=== PATIENT | female | born 1965 | race Caucasian/White ===

== ENCOUNTER → 2016-08-22 | Outpatient (CLI) | payer OTHER ==
[2016-08-22 08:47] LABS: MEAN CORPUSCULAR HEMOGLOBIN 30.8 pg (27.0-33.0); MEAN CORPUSCULAR HGB CONC 33.4 g/dl (32.0-36.5); MEAN CORPUSCULAR VOLUME 92.4 fl (80.0-96.0); RED CELL DISTRIBUTION WIDTH 12.3 % (11.5-14.5); WHITE BLOOD COUNT 3.6 K/mm3 (4.0-10.0)
[2016-08-22 09:03] LABS: ALBUMIN/GLOBULIN RATIO 1.21 (1.00-1.93); ALKALINE PHOSPHATASE 82 U/L (45-117); ALT/SGPT 26 U/L (12-78); ANION GAP 7 MEQ/L (8-16); AST/SGOT 19 U/L (15-37); BILIRUBIN,TOTAL 0.7 MG/DL (0.2-1.0); BLOOD UREA NITROGEN 17 MG/DL (7-18); CALCIUM LEVEL 8.8 MG/DL (8.5-10.1); CARBON DIOXIDE LEVEL 30 MEQ/L (21-32); CHLORIDE LEVEL 102 MEQ/L (98-107); CREATININE FOR GFR 0.58 MG/DL (0.55-1.02); GLOMERULAR FILTRATION RATE > 60.0 (>51); GLUCOSE, FASTING 76 MG/DL (70-105); POTASSIUM SERUM 4.1 MEQ/L (3.5-5.1); SODIUM LEVEL 139 MEQ/L (136-145); TOTAL PROTEIN 7.3 GM/DL (6.4-8.2); URIC ACID 3.3 MG/DL (2.6-6.0)
--- NOTE | 2016-08-22 11:19 | REP ---
Bilateral shoulders: Right shoulder three views: There is acromioclavicular osteoarthritis. There is advanced right glenohumeral osteoarthritis with deformity of the humeral head, joint space narrowing, osteophytic formation. The subacromial space is narrowed compatible with chronic impingement. Mineralization is normal. There is no fracture or dislocation. Left shoulder three views: There is acromioclavicular osteoarthritis. There is advanced glenohumeral osteoarthritis with humeral head deformity, joint space narrowing and osteophytic formation. There is narrowing of the subacromial space compatible with chronic impingement. There is a degenerative calcification extending inferiorly from the acromion into the subacromial space. There is no fracture or dislocation. Mineralization is normal. Signed by Mayco Bernardo MD 08/22/2016 11:10 A
[2016-08-24 15:10] LABS: Lyme Disease IgG/IgM Antibodie <0.91 ISR (0.00-0.90); Lyme Disease IgM Ab Quantitati <0.80 index (0.00-0.79)
== END ==
LOC: M LAB 07:54
PROVIDERS: ATTEND Family Medicine
DX: R53.83 Other fatigue (principal); M25.511 Pain in right shoulder; M25.512 Pain in left shoulder; M19.011 Primary osteoarthritis, right shoulder; M19.012 Primary osteoarthritis, left shoulder

== ENCOUNTER → 2018-01-15 | Outpatient (CLI) | payer OTHER ==
[2018-01-15 10:17] LABS: HEMATOCRIT 38.8 % (36.0-47.0); HEMOGLOBIN 12.6 g/dl (12.0-15.5); MEAN CORPUSCULAR HEMOGLOBIN 30.1 pg (27.0-33.0); MEAN CORPUSCULAR HGB CONC 32.5 g/dl (32.0-36.5); MEAN CORPUSCULAR VOLUME 92.6 fl (80.0-96.0); PLATELET COUNT, AUTOMATED 274 10^3/uL (150-450); RED BLOOD COUNT 4.19 10^6/uL (4.00-5.40); RED CELL DISTRIBUTION WIDTH 12.3 % (11.5-14.5); WHITE BLOOD COUNT 4.9 10^3/uL (4.0-10.0)
[2018-01-15 10:28] LABS: PROTHROMBIN TIME 13.3 SECONDS (12.1-14.4)
[2018-01-15 10:30] LABS: ESTIMATED AVERAGE GLUCOSE 91 MG/DL (60-110); HEMOGLOBIN A1c 4.8 %
[2018-01-15 10:57] LABS: ALBUMIN/GLOBULIN RATIO 1.11 (1.00-1.93); ALKALINE PHOSPHATASE 81 U/L (45-117); ALT/SGPT 21 U/L (12-78); ANION GAP 7 MEQ/L (8-16); AST/SGOT 18 U/L (7-37); BILIRUBIN,TOTAL 1.1 MG/DL (0.2-1.0); BLOOD UREA NITROGEN 13 MG/DL (7-18); CALCIUM LEVEL 9.1 MG/DL (8.5-10.1); CARBON DIOXIDE LEVEL 30 MEQ/L (21-32); CHLORIDE LEVEL 104 MEQ/L (98-107); CHOLESTEROL LEVEL 195 MG/DL (<200); CHOLESTEROL RISK RATIO 2.708 (<5); CREATININE FOR GFR 0.52 MG/DL (0.55-1.30); GLOMERULAR FILTRATION RATE > 60.0 (>51); GLUCOSE, FASTING 77 MG/DL (70-100); HDL CHOLESTEROL 72 MG/DL (>40); LDL CHOLESTEROL 109.4 MG/DL (<100); NON-HDL-C 123 MG/DL; SODIUM LEVEL 141 MEQ/L (136-145); TOTAL PROTEIN 7.6 GM/DL (6.4-8.2); TRIGLYCERIDES LEVEL 68 MG/DL (<150)
== END ==
LOC: M LAB 09:07
DX: Z01.818 Encounter for other preprocedural examination (principal); I10 Essential (primary) hypertension
CPT/HCPCS: 71046

== ENCOUNTER 2018-01-26 11:41 | Inpatient (IN) | payer OTHER ==
[2018-01-26 12:15] LABS: HEMATOCRIT 39.1 % (36.0-47.0); HEMOGLOBIN 12.9 g/dl (12.0-15.5); MEAN CORPUSCULAR HEMOGLOBIN 30.7 pg (27.0-33.0); MEAN CORPUSCULAR VOLUME 93.1 fl (80.0-96.0); PLATELET COUNT, AUTOMATED 265 10^3/uL (150-450); RED CELL DISTRIBUTION WIDTH 12.2 % (11.5-14.5); WHITE BLOOD COUNT 5.6 10^3/uL (4.0-10.0)
[2018-01-26] MEDS: LR 1,000 ML IV ×3 (12:15→17:15)
[2018-01-26 12:36] LABS: ERYTHROCYTE SEDIMENTATION RATE 22 mm/hr (0-30)
[2018-01-26] MEDS ORDERED: LIDOCAINE 2% INJ 100 MG/5 ML SDV (FOR ANES.) As Ordered (13:18)
[2018-01-26] MEDS ORDERED: PROPOFOL 200 MG/20 ML VIAL As Ordered ×3 (13:18→16:02)
[2018-01-26] MEDS ORDERED: MIDAZOLAM INJ 2 MG/2 ML VIAL (J2250) As Ordered ×2 (13:18→13:33)
[2018-01-26] MEDS ORDERED: fentaNYL 100 MCG/2 ML INJECTION (J3010) As Ordered ×2 (13:19→13:33)
[2018-01-26] MEDS: MIDAZOLAM INJ 2 MG/2 ML VIAL (J2250) IV ×2 (13:51→13:55)
[2018-01-26] MEDS: fentaNYL 100 MCG/2 ML INJECTION (J3010) IV ×2 (13:51→13:57)
[2018-01-26] MEDS ORDERED: ONDANSETRON 4MG/2ML VIAL (J2405) As Ordered ×2 (14:01→15:54)
[2018-01-26] MEDS: EPINEPHrine INJ 1 MG/ML 1ML AMP As Ordered (14:25)
[2018-01-26] MEDS ORDERED: dexameTHASONE 10 MG/1 ML VIAL PRES.FREE (J1100) (15:03)
[2018-01-26] MEDS ORDERED: ROPIvacaine 0.5% 30 ML INJECTION (J2795 PER 1MG) (15:03)
[2018-01-26] MEDS: ceFAZolin 1GM INJ (J0690 PER 500MG) As Ordered (15:24)
[2018-01-26] MEDS: TRANEXAMIC ACID 100 MG/ML 10ML VIAL As Ordered (15:25)
[2018-01-26] MEDS ORDERED: KETOROLAC 60 MG/2 ML VIAL (J1885) As Ordered (15:54)
[2018-01-26] MEDS: BUPIVACAINE LIPOSOME/PF 1.3% 20 ML VIAL (13.3MG/ML)(EXPAREL) As Ordered (15:55)
[2018-01-26] MEDS ORDERED: BUPIVACAINE/DEXTROSE 0.75% 2 ML AMP As Ordered (15:55)
[2018-01-26] MEDS ORDERED: ONDANSETRON 4MG/2ML VIAL (J2405) IV ×3 (17:00→17:15)
[2018-01-26] MEDS ORDERED: fentaNYL 100 MCG/2 ML INJECTION (J3010) IV (17:00)
[2018-01-26] MEDS ORDERED: MEPERIDINE INJ 25 MG/ML VIAL (J2175) IV (17:00)
[2018-01-26] MEDS ORDERED: PERCOCET 5MG/325MG TAB PO (17:00)
[2018-01-26] MEDS ORDERED: METOCLOPRAMIDE INJ 10MG/2ML VIAL (J2765) IV (17:00)
[2018-01-26] MEDS ORDERED: NALBUPHINE HCL 10 MG/ML AMP (J2300) IV (17:15)
[2018-01-26] MEDS ORDERED: FLEET ENEMA PR (17:15)
[2018-01-26] MEDS ORDERED: diphenhydrAMINE INJ 50MG/ML VIAL (J1200) IV (17:15)
[2018-01-26] MEDS ORDERED: NALOXONE INJ 0.4 MG/1 ML VIAL (J2310) IV (17:15)
[2018-01-26] MEDS ORDERED: ACETAMINOPHEN TAB 650MG DOSE (2X325MG) PO (17:15)
[2018-01-26] MEDS ORDERED: EPIDURAL/PCA KEYS XX (17:15)
[2018-01-26] MEDS ORDERED: MORPHINE 1MG/ML IN 0.9% NACL 100ML IV BAG IV (17:15)
[2018-01-26] MEDS ORDERED: LABETALOL HCL 100 MG/20 ML VIAL As Ordered (17:44)
[2018-01-26] MEDS: LABETALOL HCL 100 MG/20 ML VIAL IV ×5 (18:30→18:50)
[2018-01-26] MEDS: LOSARTAN 50 MG TAB PO (19:03)
[2018-01-26] MEDS: SENOKOT S TAB PO (20:06)
[2018-01-27] MEDS: LR 1,000 ML IV (05:40)
[2018-01-27 06:44] LABS: HEMATOCRIT 30.5 % (36.0-47.0); MEAN CORPUSCULAR HEMOGLOBIN 30.8 pg (27.0-33.0); MEAN CORPUSCULAR HGB CONC 33.1 g/dl (32.0-36.5); PLATELET COUNT, AUTOMATED 240 10^3/uL (150-450); RED BLOOD COUNT 3.28 10^6/uL (4.00-5.40); RED CELL DISTRIBUTION WIDTH 12.1 % (11.5-14.5); WHITE BLOOD COUNT 9.6 10^3/uL (4.0-10.0)
[2018-01-27] MEDS ORDERED: ONDANSETRON 4 MG TAB (S0181) PO (06:45)
[2018-01-27] MEDS ORDERED: PERCOCET 5MG/325MG TAB PO (06:45)
[2018-01-27 06:56] LABS: HEMOGLOBIN 10.1 g/dl (12.0-15.5)
[2018-01-27 07:11] LABS: ALBUMIN 3.2 GM/DL (3.2-5.2); ALKALINE PHOSPHATASE 67 U/L (45-117); ALT/SGPT 18 U/L (12-78); ANION GAP 7 MEQ/L (8-16); AST/SGOT 13 U/L (7-37); BILIRUBIN,TOTAL 0.8 MG/DL (0.2-1.0); BLOOD UREA NITROGEN 14 MG/DL (7-18); CALCIUM LEVEL 8.1 MG/DL (8.5-10.1); CARBON DIOXIDE LEVEL 28 MEQ/L (21-32); CHLORIDE LEVEL 102 MEQ/L (98-107); CREATININE FOR GFR 0.56 MG/DL (0.55-1.30); GLOMERULAR FILTRATION RATE > 60.0 (>51); GLUCOSE, FASTING 104 MG/DL (70-100); SODIUM LEVEL 137 MEQ/L (136-145); TOTAL PROTEIN 6.1 GM/DL (6.4-8.2)
[2018-01-27] MEDS: MOM 30ML SUSPENSION UDC PO (09:00)
[2018-01-27] MEDS: SENOKOT S TAB PO (09:28)
[2018-01-27] MEDS: PERCOCET 5MG/325MG TAB PO (09:29)
[2018-01-27] MEDS: LOSARTAN 50 MG TAB PO (09:31)
[2018-01-27] MEDS: MIRALAX *UNIT DOSE* 17GM PACKET PO (09:32)
[2018-01-27] MEDS ORDERED: RIVAROXABAN 10 MG TAB (XARELTO) PO (18:00)
== END 2018-01-27 14:40 | disposition home or self-care (01) | DRG 302 ==
LOC: M OR 11:41 → M MS5PR 18:22
PROC: 0SRC0J9 Replacement of Right Knee Joint with Synthetic Substitute, Cemented, Open Approach (ICD-10-PCS; principal; 2018-01-26 14:41)
DX: M17.11 Unilateral primary osteoarthritis, right knee (principal); I10 Essential (primary) hypertension; Z79.899 Other long term (current) drug therapy

== ENCOUNTER → 2018-05-29 | Outpatient (CLI) | payer OTHER ==
[~2018-05-29] MED LIST: LOSA100T50 PO; LOSA50TA88 PO; MOBI4TAB PO; PERC5TAB12 PO; TYLE650T35 PO; XARE10TA PO
[2018-05-29 08:22] LABS: HEMATOCRIT 38.6 % (36.0-47.0); HEMOGLOBIN 12.3 g/dl (12.0-15.5); MEAN CORPUSCULAR HEMOGLOBIN 28.9 pg (27.0-33.0); MEAN CORPUSCULAR HGB CONC 31.9 g/dl (32.0-36.5); MEAN CORPUSCULAR VOLUME 90.8 fl (80.0-96.0); PLATELET COUNT, AUTOMATED 273 10^3/uL (150-450); RED BLOOD COUNT 4.25 10^6/uL (4.00-5.40); WHITE BLOOD COUNT 5.3 10^3/uL (4.0-10.0)
[2018-05-29 08:34] LABS: INR 0.99; PROTHROMBIN TIME 13.2 SECONDS (12.1-14.4)
--- NOTE | 2018-05-29 08:34 | REP ---
Chest two views HISTORY: Hypertension Comparison: 01/15/2018 The lungs are clear. The heart is normal in size. The pulmonary vasculature is normal in appearance. Degenerative change is present in the shoulders. IMPRESSION: No acute disease. Electronically Signed by Eliezer Pagan MD 05/29/2018 08:25 A
[2018-05-29 08:56] LABS: ALBUMIN 4.1 GM/DL (3.2-5.2); ALT/SGPT 30 U/L (12-78); BILIRUBIN,TOTAL 0.9 MG/DL (0.2-1.0); BLOOD UREA NITROGEN 15 MG/DL (7-18); CARBON DIOXIDE LEVEL 27 MEQ/L (21-32); CHLORIDE LEVEL 104 MEQ/L (98-107); CHOLESTEROL LEVEL 199 MG/DL (<200); CHOLESTEROL RISK RATIO 2.653 (<5); CREATININE FOR GFR 0.53 MG/DL (0.55-1.30); GLOMERULAR FILTRATION RATE > 60.0 (>51); GLUCOSE, FASTING 75 MG/DL (70-100); HDL CHOLESTEROL 75 MG/DL (>40); LDL CHOLESTEROL 113 MG/DL (<100); NON-HDL-C 124 MG/DL; POTASSIUM SERUM 4.2 MEQ/L (3.5-5.1); SODIUM LEVEL 139 MEQ/L (136-145); TOTAL PROTEIN 7.6 GM/DL (6.4-8.2); TRIGLYCERIDES LEVEL 57 MG/DL (<150)
[2018-05-29 09:41] LABS: HEMOGLOBIN A1c 5.1 %
--- NOTE | 2018-05-29 23:55 | ECGEPIP ---
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
== END ==
LOC: M LAB 07:25
PROVIDERS: ATTEND Family Medicine
DX: Z01.818 Encounter for other preprocedural examination (principal); I10 Essential (primary) hypertension; I45.10 Unspecified right bundle-branch block

== ENCOUNTER 2018-06-18 09:32 | Inpatient (IN) | payer OTHER ==
--- NOTE | 2018-06-09 09:46 | HPE ---
DATE OF ANTICIPATED ADMISSION: 06/18/2018 ATTENDING PHYSICIAN: Dr. Darrell Lindo CHIEF COMPLAINT: Left knee pain and stiffness. HISTORY: The patient is a pleasant 52-year-old female with progressively worsening left knee pain and stiffness. She failed to improve with conservative measures. She continues to have symptoms with weightbearing activities and activities of daily living. The patient consented for an elective left total knee arthroplasty with Dr. Lindo for her continued symptoms. Medical optimization pending with Dr. Abad. Chronic medical conditions essential hypertension. CURRENT MEDICATIONS: - Mobic 7.5 mg twice daily - losartan 50 mg daily ALLERGIES: No known drug allergies. PAST SURGICAL HISTORY: Right total knee arthroplasty and a breast reduction. FAMILY HISTORY: Positive for hypertension and cancer. SOCIAL HISTORY: Denies tobacco use and illicit drug use. Rare alcohol use. REVIEW OF SYSTEMS: The patient denies fevers, chills, nausea, vomiting or diarrhea. She denies chest pain, shortness of breath, lightheadedness, headaches or abdominal pain. She denies any recent upper respiratory or urinary tract infection symptoms. The patient continues to have left knee pain with weightbearing activities and activities of daily living. PHYSICAL EXAMINATION: General: Well-nourished, well-developed female in no apparent distress. She is alert, oriented and cooperative. Mood and affect are appropriate. Vital signs: Height 5 feet and 6-1/2 inches, weight 185.4 pounds, blood pressure 160/80, respirations 16, heart rate 60. Neck: Supple without lymphadenopathy. Heart: Regular rate and rhythm. Lungs: Clear to auscultation bilaterally. Abdomen: Bowel sounds present. Abdomen is soft, nontender to palpation. Musculoskeletal: Inspection of the left knee does show some hypertrophic bone growth. Otherwise no erythema, edema or ecchymosis. Her skin is intact. There is tenderness along the medial joint line. She has full extension of the knee, can only flex to 90 degrees. Left lower extremity strength is 5/5. Calf is soft, nontender to palpation with no palpable cords noted. She is neurovascularly intact distally. There was no hip irritability elicited with range of motion testing. LABORATORY DATA: Chest x-ray - No acute disease. EKG sinus rhythm with a right bundle-branch block. Prolonged QTC. Comprehensive metabolic profile - fasting glucose 75, BUN 15, creatinine decreased at 0.53, GFR greater than 60, sodium 139, potassium 4.2, chloride 104, carbon dioxide 24, anion gap 8, calcium 9, AST 23, ALT 30, alkaline phosphatase 89, total bilirubin 0.9, triglycerides 57, total cholesterol 199, HDL 75, LDL elevated at 113, prothrombin time 13.2, INR 0.99. Complete blood count WBC is 5.3, RBCs 4.25, hemoglobin 12.3, hematocrit 38.6. IMPRESSION: Left knee osteoarthritis with x-rays notable for end-stage degenerative changes. PLAN: The patient has consented for an elective left total knee arthroplasty with Dr. Lindo for her continued symptoms. Medical optimization pending with Dr. Abad. HUMBERTO
[~2018-06-18] VITALS: Ht 172.7 cm; Wt 77.1 kg
[2018-06-18] MEDS ORDERED: MIDAZOLAM INJ 2 MG/2 ML VIAL (J2250) As Ordered ONE ×2 (10:41→11:22)
[2018-06-18] MEDS ORDERED: fentaNYL 100 MCG/2 ML INJECTION (J3010) As Ordered ONE ×2 (10:41→11:22)
[2018-06-18] MEDS ORDERED: ceFAZolin 1GM INJ (J0690 PER 500MG) As Ordered ONE (10:52)
[2018-06-18] MEDS ORDERED: BUPIVACAINE LIPOSOME/PF 1.3% 20ML VIAL (13.3MG/ML)(EXPAREL)(C9290 PER1MG) As Ordered ONE (10:52)
[2018-06-18] MEDS ORDERED: EPINEPHrine INJ 1 MG/ML 1ML AMP As Ordered ONE (10:52)
[2018-06-18] MEDS ORDERED: TRANEXAMIC ACID 100 MG/ML 10ML VIAL As Ordered ONE (10:52)
--- NOTE | 2018-06-18 12:06 | IPN ---
DATE: 06/18/2018 Patient seen and examined. She wished to go ahead with a left total knee arthroplasty, had gone through one recently on the right side and did very well. She is aware of the nature of the procedure, the risks of bleeding, infection, damage to nerves, vessels, persistent pain, wear, loosening, blood clots, medical problems, among others. There was a preop clearance obtained.
[2018-06-18] MEDS ORDERED: MIDAZOLAM INJ 2 MG/2 ML VIAL (J2250) IV ONE (12:30)
[2018-06-18] MEDS ORDERED: fentaNYL 100 MCG/2 ML INJECTION (J3010) IV ONE (12:30)
[2018-06-18] MEDS ORDERED: HYDROmorphone HCL 2 MG/ML 1ML VIAL (J1170) As Ordered ONE (12:53)
[2018-06-18] MEDS ORDERED: PROPOFOL 200 MG/20 ML VIAL As Ordered ONE (12:56)
[2018-06-18] MEDS ORDERED: ROCURONIUM BROMIDE 50 MG/5 ML VIAL As Ordered ONE (12:56)
[2018-06-18] MEDS ORDERED: ONDANSETRON 4MG/2ML VIAL (J2405) As Ordered ONE (13:16)
[2018-06-18] MEDS ORDERED: dexameTHASONE 4 MG/ML 1ML VIAL (J1100) As Ordered ONE (13:16)
[2018-06-18] MEDS ORDERED: NEOSTIGMINE 10 MG/10 ML VIAL (J2710) As Ordered ONE (13:51)
[2018-06-18] MEDS ORDERED: GLYCOPYRROLATE INJ 0.2 MG/ML 2 ML VIAL As Ordered ONE (13:51)
[2018-06-18] MEDS ORDERED: fentaNYL 100 MCG/2 ML INJECTION (J3010) IV PRN (14:45)
[2018-06-18] MEDS ORDERED: HYDROMORPHONE HCL 0.5 MG/ 0.5 ML SYRINGE (J1170 PER 1) IV PRN (14:45)
[2018-06-18] MEDS ORDERED: LR 1,000 ML IV SCH (14:45)
[2018-06-18] MEDS ORDERED: PERCOCET 5MG/325MG TAB PO PRN (14:45)
[2018-06-18] MEDS ORDERED: ONDANSETRON 4MG/2ML VIAL (J2405) IV PRN (14:45)
[2018-06-18] MEDS ORDERED: MORPHINE 4 MG/ML 1ML VIAL/SYRINGE (J2270) IV PRN ×2 (15:00)
[2018-06-18] MEDS ORDERED: FLEET ENEMA PR PRN (15:15)
[2018-06-18] MEDS ORDERED: ACETAMINOPHEN TAB 650MG DOSE (2X325MG) PO PRN (15:15)
--- NOTE | 2018-06-18 15:22 | REP ---
Left knee: Two views. History: Postop. Comparison left knee radiographs August 04, 2014. Findings: Patient is status post left knee arthroplasty. Anterior skin ghazala are noted. Arthroplasty components are well aligned with respect to each other and their grindstone bones. There is fluid and air in the suprapatellar bursa and extra-articular soft tissue emphysema is seen. Electronically Signed by [place] Carmona MD 06/18/2018 10:28 P
[2018-06-18 15:30] VITALS: BP 186/100
[2018-06-18] MEDS: LR 1,000 ML IV SCH (15:52)
[2018-06-18 16:00] VITALS: BP 180/96
[2018-06-18 17:00] VITALS: BP 173/99
[2018-06-18 18:00] VITALS: BP 173/100
--- NOTE | 2018-06-18 18:07 | RO ---
DATE OF PROCEDURE: 06/18/2018 PREOPERATIVE DIAGNOSIS: Left knee osteoarthritis. POSTOPERATIVE DIAGNOSIS: Left knee osteoarthritis. PROCEDURE: Left total knee arthroplasty using a PFC Sigma rotating platform, posterior stabilized, size 3 femur, size 3 tibia, and 17.5 polyethylene with 35 patellar button. SURGEON: Dr. Darrell Lindo DATA COLLECTOR: CAROLINA Flowers ANESTHESIA: Spinal followed by general. ESTIMATED BLOOD LOSS: Less than 50 mL. COMPLICATIONS: None. INDICATIONS: This is a 52-year-old woman who has advanced arthritis of her knee. She did very well with a knee replacement on the right side and wished to go ahead with a left knee replacement. She understood the nature of this, the risks of bleeding, infection, damage to nerves, vessels, persistent pain, wear, loosening, blood clots, medical problems, among others. She had such significant arthritis that I had ordered in a TC3 system in case I needed added stability. This is why I elected to go ahead with the PFC Sigma system because the TC3 would be a back up for that. DESCRIPTION OF PROCEDURE: The patient was taken to the operating room, placed in supine position after spinal anesthesia was induced, followed by that general anesthesia was induced, and the left lower extremity was prepped and draped in the usual sterile fashion. I then created longitudinal incision over the anterior aspect of the knee, sharply dissected down through subcutaneous tissue, then performed a medial parapatellar arthrotomy per routine, everted the patella. There were multiple loose bodies and significant large osteophytes around the femur and tibia that were removed. I then used the canal initiating reamer on the femoral side followed by the intramedullary guide set at 5 degrees of valgus and a 10 mm cut. This was pinned in place by the speech language pathologist assistant, and the distal femoral cut was made under my direct supervision. The femur was sized to be a 3, which was the same as the other side. I then placed the cutting block on the end of the femur in the usual fashion, and made the remaining four cuts. We then prepared the tibia. The tibial alignment guide was placed in the appropriate amount of valgus and posterior slope. I ended up taking 2 mm off the low side, which was about 12 off of the high side and the low side, medial side was extremely sclerotic and was quite difficult to pass the saw blade through. I removed this bone, then removed the soft tissue and osteophytes from either side of the knee. I prepared the tibia. The size 3 tray fit nicely, and I drilled and broached. I removed the trial component and actually then checked the spacer block and a 17.5 seemed to have the most appropriate fit and had excellent soft tissue balance. I did have to release a little bit more on the medial side tibia, but overall I was very pleased with the balance and range of motion. The box cutting guide was then placed on the femur, and the remaining three cuts were made. Trial components were placed, which fit very nicely and ended up using a 17.5 polyethylene, size 3 femur and size 3 tibia, freehand cut the patella removing about 7 mm of bone and sized to be a 35. Drill holes were placed and the patella tracked very nicely. Overall, I was very pleased with the alignment, position and stability of the knee. Trial components were removed. The speech language pathologist assistant prepared the bone cement in the modern technique on the back table, and I irrigated the bony surfaces, I injected the Exparel in the deep tissues. I dried the tibia and femur and cemented on those components, removing excess bone cement, then placed the polyethylene insert, brought the knee out in extension, cemented on the patella, held this in place with a clamp until the cement had hardened. I had removed all excess bone cement. TXA solution was placed in the knee and final irrigation was performed of the deep layers. I then repaired the deep layer with #1 Vicryl suture followed by a running Stratafix suture in both directions, performing a watertight closure. Irrigated, closed the subcu with #2-0 Vicryl and the skin with ghazala. A sterile dressing was applied, and she was taken to the recovery room in stable condition. There were no known complications. The plan will be routine postop. The speech language pathologist assistant was instrumental in holding retractors and making one of the bone cuts, mixing the cement and wound closure.
--- NOTE | 2018-06-18 18:13 | CR.PDOC ---
General Date of Consultation: Jun 18, 2018 Consultation REASON FOR CONSULTATION/CHIEF COMPLAINT: [HTN mgt ]. eft knee pain and stiffness. HISTORY: This is a 52 yo female with hx of htn who is s/p left knee total replacement today. IM team was consulted for htn mgt. Patient said her bp is well controlled with losartan 100mg . She denied fever, chills, chest pain, sob, headache , weakness or moderate/severe pain REVIEW OF SYSTEMS: All 14 points ROS is negative except what's stated in HPI PHYSICAL EXAMINATION: GEN: no acute distress HEENT : no lymphadenopathy, PERRLA , no oropharyngeal erythema or exudates CVS: Normal S1/s2, no murmurs, rubs or gallops, RESP: Lungs are clear to auscultation bilaterally, no crackles, wheezes or rhonchi Abd: soft, nontender, nondistended, + BS MSK: full ROM, 5/5 strength in all extremities - except left knee due to surgery. left knee in clean dressing , mildly swollen and tender Integumentary: no rash or bruises Neuro: AOAx3, no focal deficit psych: normal mood, good judgement and cooperative ALLERGIES: No known drug allergies. PAST SURGICAL HISTORY: Right total knee arthroplasty and a breast reduction. FAMILY HISTORY: Positive for hypertension and cancer, cva (father ) SOCIAL HISTORY: Denies tobacco use and illicit drug use. Rare alcohol use. Assessment HTN- uncontrolled at this time Recommendation restart home BP meds and adequate pain control ( pain can cause bp to bg sudeep vated) would also check chemistry and cbc if pt will be remaining the hospital AC and pain mgt per surgery team dvt ppx full code, from home, no svc Vital Signs/I&O Vital Signs Date Time Temp Pulse Resp B/P (MAP) Pulse Ox O2 Delivery O2 Flow Rate FiO2 06/18/18 17:00 98.4 78 21 173/99 (123) 98 06/18/18 14:53 Room Air 06/18/18 12:15 2 Laboratory Data Labs 24H Laboratory Tests 2 06/18/18 09:48: Erythrocyte Sedimentation Rate 17 Allergies Coded Allergies: No Known Drug Allergy (Unverified Allergy, Unknown, 05/19/18) Home Medications Scheduled Losartan Potassium (Losartan Potassium) 100 Mg Tab, 100 MG PO DAILY, (Reported) Meloxicam (Mobic) 7.5 Mg Tab, 7.5 MG PO BID, #30 (Reported) WITH FOOD Scheduled PRN Acetaminophen (Tylenol 8 Hour Arthritis) 650 Mg Tab, 1,300 MG PO Q8HP PRN for PAIN, (Reported) ETHAN EDWARDS MD Jun 18, 2018 18:13
[2018-06-18 18:55] VITALS: BP 169/104
[2018-06-18] MEDS: LOSARTAN 50 MG TAB PO SCH (19:20)
[2018-06-18 19:51] LABS: ALBUMIN 3.8 GM/DL (3.2-5.2); ALT/SGPT 22 U/L (12-78); BILIRUBIN,TOTAL 0.7 MG/DL (0.2-1.0); BLOOD UREA NITROGEN 13 MG/DL (7-18); CALCIUM LEVEL 8.6 MG/DL (8.5-10.1); CARBON DIOXIDE LEVEL 25 MEQ/L (21-32); CHLORIDE LEVEL 101 MEQ/L (98-107); CREATININE FOR GFR 0.66 MG/DL (0.55-1.30); GLOMERULAR FILTRATION RATE > 60.0 (>51); GLUCOSE, FASTING 180 MG/DL (70-100); POTASSIUM SERUM 3.8 MEQ/L (3.5-5.1); SODIUM LEVEL 134 MEQ/L (136-145); TOTAL PROTEIN 7.5 GM/DL (6.4-8.2)
[2018-06-18] MEDS: PERCOCET 5MG/325MG TAB PO PRN (21:53)
[2018-06-18 22:00] VITALS: BP 176/95
[2018-06-18] MEDS: ONDANSETRON 4MG/2ML VIAL (J2405) IV PRN (22:01)
[2018-06-19 02:00] VITALS: BP 176/95
[2018-06-19] MEDS: LR 1,000 ML IV SCH (04:20)
[2018-06-19] MEDS: PERCOCET 5MG/325MG TAB PO PRN (04:58)
[2018-06-19] MEDS: ONDANSETRON 4MG/2ML VIAL (J2405) IV PRN (04:59)
[2018-06-19 06:00] VITALS: BP 141/77
[2018-06-19 07:01] LABS: HEMATOCRIT 31.5 % (36.0-47.0); HEMOGLOBIN 10.2 g/dl (12.0-15.5); MEAN CORPUSCULAR HGB CONC 32.4 g/dl (32.0-36.5); MEAN CORPUSCULAR VOLUME 92.6 fl (80.0-96.0); PLATELET COUNT, AUTOMATED 260 10^3/uL (150-450); WHITE BLOOD COUNT 8.8 10^3/uL (4.0-10.0)
--- NOTE | 2018-06-19 07:46 | IPNPDOC ---
Date Seen The patient was seen on 06/19/18. Progress Note SUBJECTIVE: Patient is doing well today. She denied any complaint. Being dc today. BP is much better OBJECTIVE vital signs are stable REVIEW OF SYSTEMS: negative except what's listed above PHYSICAL EXAMINATION: GEN: no acute distress HEENT : no lymphadenopathy, PERRLA , no oropharyngeal erythema or exudates CVS: Normal S1/s2, no murmurs, rubs or gallops, RESP: Lungs are clear to auscultation bilaterally, no crackles, wheezes or rhonchi Abd: soft, nontender, nondistended, + BS MSK: full ROM, 5/5 strength in all extremities - except left knee due to surgery. left knee in clean dressing , mildly swollen and tender Integumentary: no rash or bruises Neuro: AOAx3, no focal deficit psych: normal mood, good judgement and cooperative LABORATORY DATA, IMAGING STUDIES, MICROBIOLOGY: Please see below. - reviewed ASSESSMENT HTN - much improved today PLAN: c/w losartan 100mg daily adequate pain control anticoagulation per surgery DVt ppx - on rivaroxaban full code, from home VS, I&O, 24H, Count Includes [facility] Vital Signs/I&O Vital Signs Date Time Temp Pulse Resp B/P (MAP) Pulse Ox O2 Delivery O2 Flow Rate FiO2 06/19/18 06:00 99.4 86 18 141/77 (98) 94 06/18/18 14:53 Room Air 06/18/18 12:15 2 I&O- Last 24 Hours up to 6 AM 06/19/18 06:00 Intake Total 2975 ml Output Total 600 ml Balance 2375 ml Laboratory Data 24H LABS Laboratory Tests 2 06/18/18 09:48: Erythrocyte Sedimentation Rate 17 06/18/18 19:20: Anion Gap 8, Glomerular Filtration Rate > 60.0, Blood Urea Nitrogen 13, Creatinine 0.66, Sodium Level 134L, Potassium Level 3.8, Chloride Level 101, Carbon Dioxide Level 25, Calcium Level 8.6, Aspartate Amino Transf (AST/SGOT) 16, Alanine Aminotransferase (ALT/SGPT) 22, Alkaline Phosphatase 80, Total Bilirubin 0.7, Total Protein 7.5, Albumin 3.8, Albumin/Globulin Ratio 1.03 06/19/18 05:34: Nucleated Red Blood Cells % (auto) 0.0 CBC/BMP Laboratory Tests 06/18/18 19:20 Calcium Level 8.6, Aspartate Amino Transf (AST/SGOT) 16, Alanine Aminotransferase (ALT/SGPT) 22, Alkaline Phosphatase 80, Total Bilirubin 0.7, Total Protein 7.5, Albumin 3.8 06/19/18 05:34 Red Blood Count 3.40 L, Mean Corpuscular Volume 92.6, Mean Corpuscular Hemoglobin 30.0, Mean Corpuscular Hemoglobin Concent 32.4, Red Cell Distribution Width 13.2 ETHAN EDWARDS MD Jun 19, 2018 07:44
--- NOTE | 2018-06-19 07:50 | IPN ---
DATE OF SERVICE: 06/18/2018 CHIEF COMPLAINT: Postoperative day 1 left total knee arthroplasty. HISTORY OF PRESENT ILLNESS: This 52-year-old female was seen today postoperative day 1 from left total knee arthroplasty performed by Dr. Lindo. I was asked to cover for his patient's for today. She is doing well. Minimal pain. No other concerns from her or the nurses. She has had this on the other side and no concerns of the other side. PHYSICAL EXAMINATION: Vital signs: Temperature 99.4. Blood pressure 141/77. Pulse rate 86. 94% on room air. Respiratory rate 18. She is alert and oriented times three. Mood and affect is pleasant and positive. Examination of the lower extremities revealed an marisa wrap on the left lower extremity and nothing on the right side. Her right sided total knee incision appears well healed and free of any complications. She is able to wiggle her toes, dorsiflex and plantarflex her feet on both sides. Both feet are warm and well perfused. Strong pedal pulses notable on the left side. She has sequential compression devices (SCD)s in place. LABORATORY EXAMINATION: This morning, her hemoglobin was 10.2. Unknown prior to surgery. Electrolytes appear normal. Fasting glucose is elevated at 180. ASSESSMENT AND PLAN: This 52-year-old female who is now postoperative day 1 from left total knee arthroplasty. She does appear comfortable enough to go home today. We have encouraged her to mobilize. We will see how she does today and as long as she is comfortable, she can be discharged home to followup with Dr. Lindo.
[2018-06-19 08:20] VITALS: BP 132/74
[2018-06-19] MEDS ORDERED: PERC5TAB12 PO (08:29)
[2018-06-19] MEDS ORDERED: XARE10TA PO (08:29)
[2018-06-19] MEDS ORDERED: MIRALAX *UNIT DOSE* 17GM PACKET PO SCH (09:00)
[2018-06-19] MEDS ORDERED: MOM 30ML SUSPENSION UDC PO SCH (09:00)
[2018-06-19 09:03] VITALS: BP 132/74
[2018-06-19] MEDS: LOSARTAN 50 MG TAB PO SCH (09:03)
[2018-06-19 10:00] VITALS: BP 134/73
[2018-06-19] MEDS ORDERED: RIVAROXABAN 10 MG TAB (XARELTO) PO SCH (18:00)
== END 2018-06-19 11:15 | disposition home or self-care (01) | DRG 302 ==
LOC: M OR 09:32 → M MS5PR 15:20
PROVIDERS: ADMIT Orthopaedic Surgery; ATTEND Orthopaedic Surgery
PROC: 0SRD0J9 Replacement of Left Knee Joint with Synthetic Substitute, Cemented, Open Approach (ICD-10-PCS; principal; 2018-06-18 12:10)
DX: M17.12 Unilateral primary osteoarthritis, left knee (principal); I10 Essential (primary) hypertension; Z79.1 Long term (current) use of non-steroidal anti-inflammatories (NSAID); Z79.899 Other long term (current) drug therapy; Z96.651 Presence of right artificial knee joint

== ENCOUNTER → 2019-05-26 | Outpatient (CLI) | payer OTHER ==
--- NOTE | 2019-05-27 01:19 | REP ---
Clinical: Shoulder pain. Technique: Internal rotation, external rotation, and Y view of the right shoulder. Findings: Early advanced osteoarthritic degenerative changes are appreciated. Findings include osteophytosis, chondrocalcinosis, decrease subacromial space, and chronic flattening, subluxation and deformity/remodeling of the humeral head and glenoid rim. Impression: Early advanced osteoarthritic changes. Electronically Signed by Deric Berg MD 05/27/2019 01:11 A
== END ==
LOC: M WUC 11:38
PROVIDERS: ATTEND Physician Assistant
DX: M25.511 Pain in right shoulder (principal); M19.011 Primary osteoarthritis, right shoulder

== ENCOUNTER → 2025-03-04 | Outpatient (CLI) | payer BC ==
[~2025-03-04] MED LIST changes: +ACET650T61 PO; +LOSA100T46 PO; -LOSA100T50 PO; +LOSA50TA28 PO; -LOSA50TA88 PO; -TYLE650T35 PO
[2025-03-04 08:23] LABS: BASO # 0.0 10^3/uL (0.0-0.2); BASO % 0.8 % (0.0-1.0); EOS # 0.2 10^3/uL (0.0-0.5); EOS % 3.2 % (0.0-3.0); LYMPH # 1.1 10^3/uL (1.5-5.0); LYMPH % 22.5 % (24.0-44.0); MONO # 0.3 10^3/uL (0.0-0.8); MONO % 6.8 % (2.0-8.0); NEUTROPHILS # 3.3 10^3/uL (1.5-8.5); NEUTROPHILS % 66.3 % (36.0-66.0); PLATELET COUNT, AUTOMATED 331 10^3/uL (150-450)
[2025-03-04 08:54] LABS: ALT/SGPT 17 U/L (7.0-40); AST/SGOT 18 U/L (<34); CALCIUM LEVEL 9.9 MG/DL (8.3-10.6); CARBON DIOXIDE LEVEL 28 MMOL/L (20-31); CHLORIDE LEVEL 102 MMOL/L (98-107); CHOLESTEROL LEVEL 230 MG/DL (<200); CHOLESTEROL RISK RATIO 4.12 (<5); CREATININE FOR GFR 0.59 MG/DL (0.55-1.30); GLOMERULAR FILTRATION RATE > 90.0 (>45); LDL CHOLESTEROL 154.4 MG/DL (<100); NON-HDL-C 174.2 MG/DL; POTASSIUM SERUM 4.1 MMOL/L (3.5-5.1); SODIUM LEVEL 141 MMOL/L (136-145); TRIGLYCERIDES LEVEL 99 MG/DL (<150)
[2025-03-04 09:13] LABS: ESTIMATED AVERAGE GLUCOSE 100.0 MG/DL (60-110)
== END ==
LOC: M LAB 06:59
PROVIDERS: ATTEND Student in an Organized Health Care Education/Training Program
DX: Z00.00 Encounter for general adult medical examination without abnormal findings (principal); I10 Essential (primary) hypertension; M19.011 Primary osteoarthritis, right shoulder; M21.611 Bunion of right foot; M21.612 Bunion of left foot; R01.1 Cardiac murmur, unspecified; M89.8X9 Other specified disorders of bone, unspecified site; M19.012 Primary osteoarthritis, left shoulder

== ENCOUNTER → 2025-04-19 | Outpatient (CLI) | payer BC | LOC: M PLAIMG 07:52 | PROVIDERS: ATTEND Student in an Organized Health Care Education/Training Program | DX: R01.1 Cardiac murmur, unspecified (principal) ==

== ENCOUNTER → 2025-05-03 | Outpatient (REF) | payer BC ==
[2025-05-06 06:22] LABS: HPV APTIMA Not Detected (Not Detected)
== END ==
LOC: M PLALAB 08:15
PROVIDERS: ATTEND Physician Assistant
DX: Z12.4 Encounter for screening for malignant neoplasm of cervix (principal)